=== PATIENT | female | born 1965 | race Caucasian/White ===

== ENCOUNTER → 2016-11-23 | Outpatient (CLI) | payer MEDICARE, MEDICAID ==
--- NOTE | 2016-11-23 14:28 | WOMENS IMAGING REPORT ---
EXAM DESCRIPTION: BILAT SCREENING MAMMO W/CAD COMPLETED DATE/TIME: 11/23/2016 10:33 am REASON FOR STUDY: Z12.31, ROUTINE SCREENING MAMMO Z12.31 ENCNTR SCREEN MAMMOGRAM FOR MALIGNANT NEOP LASM OF LINDA COMPARISON: 2009 to 2015 TECHNIQUE: Standard craniocaudal and mediolateral oblique views of each breast recorded using MediTAPa l acquisition. LIMITATIONS: None. FINDINGS: No masses, calcifications or architectural distortion. No areas of suspicion. Read with the assistance of CAD. .[facility] - R2 Cenova Version 1.3 .[facility] - R2 Cenova Version 1.3 .[facility] - R2 Cenova Version 2.4 .[facility] [place] - R2 Cenova Version 2.4 .[facility] - R2 Salesperson [employer]ial Needs Version 9.2 IMPRESSION: NORMAL MAMMOGRAM. BIRADS 1. BREAST DENSITY: b. There are scattered areas of fibroglandular density. BIRAD: 1 NEGATIVE RECOMMENDATION: ROUTINE SCREENING COMMENT: The patient has been notified of the results by letter per SA requirements. Additional no tification policies are in place for contacting patient with suspicious or incomplete findings. Quality ID #[id number]: The [employer] recommends an annual screening mammogram for women aged 40 years or over. This facility utilizes a reminder system to ensure that all patients receive reminder letters, and/or direct phone calls for appointments. This includes reminders for routine scr eening mammograms, diagnostic mammograms, or other Breast Imaging Interventions when appropriate. Th is patient will be placed in the appropriate reminder system. The [employer] (ACR) has developed recommendations for screening MRI of the breast s in certain patient populations, to be used in conjunction with mammography. Breast MRI surveillanc e may be appropriate for women with more than 20% lifetime risk of developing breast cancer as deter mined by genetic testing, significant family history of the disease, or history of mantle radiation f or Hodgkins Disease. ACR Practice Guidelines 2008. TECHNICAL DOCUMENTATION: FINDING NUMBER: (1) ASSESSMENT: (1) JOB ID: [id number] [employer]- All Rights Reserved
== END ==
LOC: WI 15:43
PROVIDERS: ATTEND Physician Assistant
DX: Z12.31 Encounter for screening mammogram for malignant neoplasm of breast (principal)
CPT/HCPCS: 77067; G0202

== ENCOUNTER → 2017-02-14 | Outpatient (CLI) | payer MEDICARE, MEDICAID ==
--- NOTE | 2017-02-14 12:40 | RADIOLOGY REPORT (SQ) ---
EXAM DESCRIPTION: SACRUM AND COCCYX COMPLETED DATE/TIME: 02/14/2017 10:17 am REASON FOR STUDY: MYALGIA M79.1 MYALGIA COMPARISON: None. NUMBER OF VIEWS: Three views. TECHNIQUE: AP, lateral, and tilt views of the sacrum and coccyx. LIMITATIONS: None. FINDINGS: MINERALIZATION: Osteopenic BONES: On the lateral view, there is a questionable transverse fracture at the S5 level, marked with an arrow on lateral view. Remainder of the bony sacrum and coccyx is intact. Visualized pelvis in t he field of view unremarkable SOFT TISSUES: No soft tissue swelling. No foreign body. OTHER: Advanced degenerative disc changes at L4-5 and L5-S1. IMPRESSION: Question nondisplaced transverse fracture distal sacrum near the sacrococcygeal junction . Advanced degenerative disc changes at L4-5 and L5-S1 TECHNICAL DOCUMENTATION: JOB ID: [id number] [employer]- All Rights Reserved
== END ==
LOC: OD 09:42
PROVIDERS: ATTEND Physician Assistant
DX: M79.1 Myalgia (principal)
CPT/HCPCS: 72220

== ENCOUNTER 2017-02-26 09:27 | Day surgery (SDC) | payer MEDICARE, MEDICAID ==
[~2017-02-26 09:27] MED LIST: PROPOFOL INJ 200 MG/20 ML VIAL IV ONE
[2017-02-26 11:02] VITALS: BP 107/73
--- NOTE | 2017-02-26 13:13 | Operative Report ---
Operative Report DATE OF SURGERY: 02/26/17 Operative Report: The risks, benefits and alternatives of the procedure including risks of bleeding, perforation requiring surgery are explained to the patient detail and informed consent was obtained. The patient was brought back to the endoscopy suite and placed in the left, lateral decubital position. Timeout was called. Propofol medications administered. A rectal examination was done which did not reveal any masses, tears or fissures. An Olympus videoscope was inserted in the patient's rectum. It is carefully advanced all the way to the cecum. The cecum was identified by the usual anatomical landmarks including the ileocecal valve as well as the appendiceal office. Photodocumentation is obtained. Prep is good. The scope was then sequentially pulled back via the various segments of the colon including the ascending colon, hepatic flexure, transverse colon, splenic flexure, descending colon finally to the rectosigmoid portions of the colon. Retroflexion maneuver was performed. PREOPERATIVE DIAGNOSIS: Abdominal distention, change of bowel habits. POSTOPERATIVE DIAGNOSIS: Redundant colon. Random biopsies obtained on the right side of the colon to rule out for collagenous, microscopic colitis. Internal hemorrhoids. No evidence of Crohn's disease, ulcerative colitis or obstructive lesions noted. Prep is good. OPERATION: Colonoscopy with biopsy SURGEON: VY HUERTAS ANESTHESIA: LMAC TISSUE REMOVED OR ALTERED: As noted above. COMPLICATIONS: None. ESTIMATED BLOOD LOSS: None. INTRAOPERATIVE FINDINGS: As described above. PROCEDURE: Patient tolerated the procedure well. No immediate postprocedure complications are noted. Patient discharged in good condition. Discharge date 02/26/2017. Discharge diet: Regular. Discharge activity: Regular. 2-3 week follow-up to discuss findings. Patient is instructed to call the office or proceed to the emergency room should there be any further problems or questions. We will wait on pathology. 10 year surveillance colonoscopy.
== END 2017-02-26 11:07 | disposition home or self-care (01) ==
LOC: END 09:27
PROVIDERS: ATTEND Internal Medicine Gastroenterology
PROC: 0DBF8ZX Excision of Right Large Intestine, Via Natural or Artificial Opening Endoscopic, Diagnostic (ICD-10-PCS; principal; 2017-02-26 11:00)
DX: K64.8 Other hemorrhoids (principal); K62.89 Other specified diseases of anus and rectum; K31.89 Other diseases of stomach and duodenum; I10 Essential (primary) hypertension; F70 Mild intellectual disabilities; Z87.891 Personal history of nicotine dependence; Z79.899 Other long term (current) drug therapy
CPT/HCPCS: 45380; 88305 ×2; J2704; 810

== ENCOUNTER 2017-04-05 22:49 | Emergency (ER) | payer MEDICARE, MEDICAID ==
[2017-04-05] MEDS ORDERED: NORMAL SALINE 1000 ML 1,000 ML IV PRN (23:43)
--- NOTE | 2017-04-05 23:47 | ER Document Report ---
ED GI Bleed / Rectal Pain - General Chief Complaint: Rectal Bleeding Stated Complaint: RECTAL BLEEDING Time Seen by Provider: 04/05/17 23:43 Mode of Arrival: Ambulatory Information source: Patient TRAVEL OUTSIDE OF THE [place] IN LAST 30 DAYS: No - HPI Patient complains to provider of: Bright red bld from rect. Onset: Yesterday Timing/Duration: Persistent Quality of pain: Achy Severity of symptoms: Mild Pain Level: 1 Notes: Patient is a 52-year-old female with cognitive delay who lives at a local halfway, brought to the emergency room by halfway staff for complaints of rectal bleeding that started yesterday after having a large bowel movement, when they were helping patient changes evening they noted a moderate amount of blood in her briefs as well, she is complaining of some crampy lower abdominal pain, no vomiting, no fevers, no history of similar symptoms previously - Related Data Allergies/Adverse Reactions: aspirin [Aspirin] Allergy (Verified 02/26/17 09:36) codeine [Codeine] Allergy (Verified 02/26/17 09:36) risperidone [Risperidone] Allergy (Verified 02/26/17 09:36) Sulfa (Sulfonamide Antibiotics) Allergy (Verified 02/26/17 09:36) Past Medical History - General Information source: Patient - Social History Smoking Status: Unknown if Ever Smoked Family History: Reviewed & Not Pertinent Patient has suicidal ideation: No Patient has homicidal ideation: No - Past Medical History Cardiac Medical History: Reports: Hx Hypertension Denies: Hx Coronary Artery Disease, Hx Heart Attack Pulmonary Medical History: Denies: Hx Asthma, Hx Bronchitis, Hx COPD, Hx Pneumonia Neurological Medical History: Reports: Hx Cerebrovascular Accident - QUESTIONABLE. Denies: Hx Seizures Renal/ Medical History: Denies: Hx Peritoneal Dialysis Musculoskeltal Medical History: Reports Hx Arthritis - GENERALIZED Past Surgical History: Reports: Hx Tubal Ligation - Immunizations Hx Diphtheria, Pertussis, Tetanus Vaccination: No Review of Systems - Review of Systems Constitutional: No symptoms reported EENT: No symptoms reported Cardiovascular: No symptoms reported Respiratory: No symptoms reported Gastrointestinal: See HPI Genitourinary: No symptoms reported Female Genitourinary: No symptoms reported Musculoskeletal: No symptoms reported Skin: No symptoms reported Hematologic/Lymphatic: No symptoms reported Neurological/Psychological: No symptoms reported -: Yes All other systems reviewed and negative Physical Exam - Vital signs Vitals: Temp Pulse Resp BP Pulse Ox 97.9 F 102 H 16 95/55 L 93 04/05/17 23:27 04/05/17 23:27 04/05/17 23:27 04/05/17 23:27 04/05/17 23:27 Interpretation: Hypotensive, Tachycardic - HEENT Head: Normocephalic, Atraumatic Eyes: Normal Pupils: PERRL Mucous membranes: Dry - Respiratory Respiratory status: No respiratory distress Chest status: Nontender Breath sounds: Normal Chest palpation: Normal - Cardiovascular Rhythm: Regular Heart sounds: Normal auscultation Murmur: No - Abdominal Inspection: Normal Distension: No distension Bowel sounds: Normal Tenderness: Tender - Mild diffuse Organomegaly: No organomegaly - Back Back: Normal, Nontender - Extremities General upper extremity: Normal inspection, Nontender, Normal color, Normal ROM , Normal temperature General lower extremity: Normal inspection, Nontender, Normal color, Normal ROM , Normal temperature, Normal weight bearing. No: Nathan's sign - Neurological Neuro grossly intact: Yes Cognition: Normal Orientation: AAOx4 [place] Coma Scale Eye Opening: Spontaneous Annelise Coma Scale Verbal: Oriented Annelise Coma Scale Motor: Obeys Commands [place] Coma Scale Total: 15 - Psychological Associated symptoms: Normal affect, Normal mood - Skin Skin Temperature: Warm Skin Moisture: Dry Skin Color: Pale Course - Vital Signs Vital signs: Temp Pulse Resp BP Pulse Ox 97.9 F 102 H 16 95/55 L 93 04/05/17 23:27 04/05/17 23:27 04/05/17 23:27 04/05/17 23:27 04/05/17 23:27
--- NOTE | 2017-04-06 00:32 | ER Document Report ---
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 Patient had a very large difficult bowel movement with straining yesterday afternoon and had blood mixed in, patient had a brief change and the agent noted this evening that patient had "a lot of blood soaked into the bottom of the brief". Patient complaining of intermittent crampy lower abdominal pain. No vomiting, no dizziness, no passing out. Patient does not have a history of the same. Patient is not on a blood thinner. PMH of HTN, HLD, GERD, tubal ligation. TRAVEL OUTSIDE OF THE [place] IN LAST 30 DAYS: No - Related Data Allergies/Adverse Reactions: aspirin [Aspirin] Allergy (Verified 02/26/17 09:36) codeine [Codeine] Allergy (Verified 02/26/17 09:36) risperidone [Risperidone] Allergy (Verified 02/26/17 09:36) Sulfa (Sulfonamide Antibiotics) Allergy (Verified 02/26/17 09:36) Past Medical History - General Information source: Patient - Social History Smoking Status: Never Smoker Frequency of alcohol use: None Drug Abuse: None Lives with: [facility] Family History: Reviewed & Not Pertinent Patient has suicidal ideation: No Patient has homicidal ideation: No - Past Medical History Cardiac Medical History: Reports: Hx Hypertension Denies: Hx Coronary Artery Disease, Hx Heart Attack Pulmonary Medical History: Denies: Hx Asthma, Hx Bronchitis, Hx COPD, Hx Pneumonia Neurological Medical History: Reports: Hx Cerebrovascular Accident - QUESTIONABLE. Denies: Hx Seizures Renal/ Medical History: Denies: Hx Peritoneal Dialysis Musculoskeltal Medical History: Reports Hx Arthritis - GENERALIZED Past Surgical History: Reports: Hx Tubal Ligation - Immunizations Hx Diphtheria, Pertussis, Tetanus Vaccination: No Review of Systems - Review of Systems Constitutional: No symptoms reported EENT: No symptoms reported Cardiovascular: See HPI Respiratory: No symptoms reported Gastrointestinal: See HPI Genitourinary: No symptoms reported Female Genitourinary: No symptoms reported Musculoskeletal: No symptoms reported Skin: No symptoms reported Hematologic/Lymphatic: No symptoms reported Neurological/Psychological: No symptoms reported Physical Exam - Vital signs Vitals: Temp Pulse Resp BP Pulse Ox 97.9 F 102 H 16 95/55 L 93 04/05/17 23:27 04/05/17 23:27 04/05/17 23:27 04/05/17 23:27 04/05/17 23:27 Interpretation: Normal - General General appearance: Appears well, Alert In distress: None - HEENT Head: Normocephalic, Atraumatic Eyes: Normal Conjunctiva: Normal Extraocular movements intact: Yes Eyelashes: Normal Pupils: PERRL Mouth/Lips: Normal Mucous membranes: Normal Pharynx: Normal Neck: Normal - Respiratory Respiratory status: No respiratory distress Chest status: Nontender Breath sounds: Normal. No: Decreased air movement, Wheezing Chest palpation: Normal - Cardiovascular Rhythm: Regular, Tachycardia - borderline Heart sounds: Normal auscultation, S1 appreciated, S2 appreciated Murmur: No - Abdominal Inspection: Normal Distension: No distension Bowel sounds: Normal Tenderness: Nontender. No: Tender, McBurney's point, Veras's sign, Guarding Organomegaly: No organomegaly - Rectal Stool: Heme negative, See lab result. No: Black, Bloody Hemorrhoids: None. No: Internal, External, Anal fissure, Mass - Back Back: Normal, Nontender. No: Tender - Extremities General upper extremity: Normal inspection, Nontender, Normal color, Normal ROM , Normal temperature General lower extremity: Normal inspection, Nontender, Normal color, Normal ROM , Normal temperature, Normal weight bearing. No: Nathan's sign - Neurological Neuro grossly intact: Yes Cognition: Normal Orientation: AAOx4 Annelise Coma Scale Eye Opening: Spontaneous Annelise Coma Scale Verbal: Oriented [place] Coma Scale Motor: Obeys Commands [place] Coma Scale Total: 15 Speech: Normal Motor strength normal: LUE, RUE, LLE, RLE Sensory: Normal - Psychological Associated symptoms: Normal affect, Normal mood - Skin Skin Temperature: Warm Skin Moisture: Dry Skin Color: Normal Course - Re-evaluation Re-evalutation: Patient with borderline tachycardia and hypotension on initial evaluation, she has parched lips and tongue and extremely dry mucous membranes but otherwise she does not appear to be in any discomfort and her physical examination is otherwise unremarkable. Rectal examination shows no hemorrhoids, shows no current bleeding, Hemoccult is negative. Abdomen is soft. CBC is unremarkable, chemistry unremarkable, urinalysis eventually obtained after 2 L IV fluid bolus, after 2 L IV fluid bolus hypotension resolved, tachycardia resolved, patient appears improved and states she feels much better. Discussed with patient and provider at bedside. Patient will be placed on stool softener, advised not to strain, is to routinely follow-up with her primary care, discussed return precautions in detail, patient and provider state understanding and agreement. - Vital Signs Vital signs: Temp Pulse Resp BP Pulse Ox 97.9 F 102 H 10 L 103/69 96 04/05/17 23:27 04/05/17 23:27 04/06/17 04:00 04/06/17 04:01 04/06/17 04:01 - Laboratory Result Diagrams: 04/06/17 00:16 04/06/17 00:16 Laboratory results interpreted by me: 04/06/17 04/06/17 00:16 03:20 AST 42 H Urine Blood SMALL H Discharge - Discharge Clinical Impression: Rectal bleeding, Dehydration Condition: Stable Disposition: HOME, SELF-CARE Additional Instructions: She has been rehydrated. Physical examination does not show any concerning abnormalities in regards to her recent rectal bleeding. Take the stool softener daily for the next 3-4 days, continue plenty of fluids, follow-up with her primary care provider. Please return the emergency department for any concerning or worsening symptoms including vomiting, abdominal pain, returned or significant bleeding, passing out, or any other concerning symptoms. Prescriptions: Docusate Sodium [Colace 100 mg Capsule] 100 mg PO DAILY #30 capsule Referrals: SKYLA VALDIVIA PA-C [Primary Care Provider] - Follow up as needed
[2017-04-06 00:37] LABS: ABSOLUTE BASOPHILS # (AUTO) 0.1 10^3/uL (0.0-0.2); ABSOLUTE EOSINOPHILS # (AUTO) 0.1 10^3/uL (0.0-0.6); ABSOLUTE LYMPHOCYTES (AUTO) 1.6 10^3/uL (0.5-4.7); ABSOLUTE MONOCYTES (AUTO) 0.5 10^3/uL (0.1-1.4); ABSOLUTE NEUT (AUTO) 6.3 10^3/uL (1.7-8.2); BASOPHILS % (AUTO) 0.6 % (0-2); EOSINOPHILS % (AUTO) 0.9 % (0-6); HEMATOCRIT 37.4 % (36.0-47.0); HEMOGLOBIN 12.9 g/dL (12.0-15.5); HGB HCT DIFFERENCE 1.3; LYMPHOCYTES % (AUTO) 18.8 % (13-45); MEAN CORPUSCULAR HEMOGLOBIN 29.3 pg (27.0-33.4); MEAN CORPUSCULAR HGB CONC 34.4 g/dL (32.0-36.0); MEAN CORPUSCULAR VOLUME 85 fl (80-97); MONOCYTES % (AUTO) 5.9 % (3-13); PROTHROMBIN TIME 12.8 SEC (11.4-15.4); RED BLOOD COUNT 4.39 10^6/uL (3.72-5.28); RED CELL DISTRIBUTION WIDTH 13.4 % (11.5-14.0); SEGMENTED NEUTROPHILS % (AUTO) 73.8 % (42-78); WHITE BLOOD COUNT 8.6 10^3/uL (4.0-10.5)
[2017-04-06 00:53] LABS: ALANINE AMINOTRANSFERASE 25 U/L (9-52); ALKALINE PHOSPHATASE 72 U/L (38-126); ANION GAP 7 (5-19); ASPARTATE AMINO TRANSFERASE 42 U/L (14-36); BILIRUBIN,DIRECT 0.4 mg/dL (0.0-0.4); BILIRUBIN,TOTAL 0.4 mg/dL (0.2-1.3); BLOOD UREA NITROGEN 13 mg/dL (7-20); CALCIUM 9.2 mg/dL (8.4-10.2); CARBON DIOXIDE 28 mmol/L (22-30); CHLORIDE 103 mmol/L (98-107); CREATININE RESULT 0.96 mg/dL (0.52-1.25); GLUCOSE 101 mg/dL (75-110); POTASSIUM 4.1 mmol/L (3.6-5.0); SODIUM 138.2 mmol/L (137-145); TOTAL PROTEIN 7.2 g/dL (6.3-8.2)
[2017-04-06] MEDS ORDERED: NORMAL SALINE 1000 ML 1,000 ML IV ONE ×2 (01:27→01:44)
[2017-04-06 04:00] LABS: APPEARANCE,URINE CLEAR; BILIRUBIN,URINE NEGATIVE (NEGATIVE); GLUCOSE, URINE NEGATIVE (NEGATIVE); KETONES,URINE NEGATIVE (NEGATIVE); LEUKOCYTE ESTERASE,URINE NEGATIVE (NEGATIVE); NITRITE,URINE NEGATIVE (NEGATIVE); PROTEIN,URINE NEGATIVE (NEGATIVE); URINE SPECIFIC GRAVITY 1.004; UROBILINOGEN,URINE NEGATIVE mg/dL (<2.0)
[2017-04-06 04:38] VITALS: BP 103/69
== END 2017-04-06 04:38 | disposition home or self-care (01) ==
LOC: ER 22:49
DX: K62.5 Hemorrhage of anus and rectum (principal); E86.0 Dehydration; K21.9 Gastro-esophageal reflux disease without esophagitis; Z88.6 Allergy status to analgesic agent; Z88.2 Allergy status to sulfonamides; Z98.51 Tubal ligation status
CPT/HCPCS: 99283; 96360; 96361; 86900; 86901; 36415; 86850; 85025; 85610; 85730; 82272; 80053; 81001; J7030

== ENCOUNTER → 2017-10-22 | Outpatient (CLI) | payer MEDICARE, MEDICAID ==
--- NOTE | 2017-10-22 12:21 | RADIOLOGY REPORT (SQ) ---
EXAM DESCRIPTION: TIBIA FIBULA RIGHT COMPLETED DATE/TIME: 10/22/2017 9:56 am REASON FOR STUDY: DISORDER OF THE SKIN AND SUBCUTANEOUS TISSUE, UNSPECIFIED L98.9 DISORDER OF THE S KIN AND SUBCUTANEOUS TISSUE, UNSPECIF COMPARISON: None. NUMBER OF VIEWS: Two views. TECHNIQUE: Two radiographic images acquired of the right tibia and fibula to include the knee and an kle in at least one projection. LIMITATIONS: None. FINDINGS: MINERALIZATION: Normal. BONES: No acute fracture or dislocation. No worrisome bone lesions. SOFT TISSUES: Vascular calcifications. OTHER: No other significant finding. IMPRESSION: No acute findings. No evidence of osteomyelitis. TECHNICAL DOCUMENTATION: JOB ID: [id number] [employer]- All Rights Reserved Reading location - IP/workstation name: [email or web address]
== END ==
LOC: OD 09:36
PROVIDERS: ATTEND Physician Assistant
DX: L98.9 Disorder of the skin and subcutaneous tissue, unspecified (principal)

== ENCOUNTER → 2017-11-27 | Outpatient (CLI) | payer MEDICARE, MEDICAID ==
--- NOTE | 2017-11-28 15:13 | WOMENS IMAGING REPORT ---
EXAM DESCRIPTION: 3D SCREENING MAMMO BILAT COMPLETED DATE/TIME: 11/27/2017 10:08 am REASON FOR STUDY: SCREENING MAMMO Z12.31 ENCNTR SCREEN MAMMOGRAM FOR MALIGNANT NEOPLASM OF LINDA COMPARISON: [id number] TECHNIQUE: Standard craniocaudal and mediolateral oblique views of each breast recorded using digita l acquisition and breast tomosynthesis. LIMITATIONS: None. FINDINGS: No masses, calcifications or architectural distortion. No areas of suspicion. Read with the assistance of CAD. .[facility] - R2 Cenova Version 1.3 .[facility] - R2 Cenova Version 1.3 .[facility] - R2 Cenova Version 2.4 .[facility] - R2 Cenova Version 2.4 .[facility] - R2 [employer] Handler Version 9.2 IMPRESSION: NORMAL MAMMOGRAM. BIRADS 1. BREAST DENSITY: b. There are scattered areas of fibroglandular density. BIRAD: 1 NEGATIVE RECOMMENDATION: ROUTINE SCREENING COMMENT: The patient has been notified of the results by letter per SA requirements. Additional no tification policies are in place for contacting patient with suspicious or incomplete findings. Quality ID #225: The [employer] recommends an annual screening mammogram for women aged 40 years or over. This facility utilizes a reminder system to ensure that all patients receive reminder letters, and/or direct phone calls for appointments. This includes reminders for routine scr eening mammograms, diagnostic mammograms, or other Breast Imaging Interventions when appropriate. Th is patient will be placed in the appropriate reminder system. The [employer] [employer] (ACR) has developed recommendations for screening MRI of the breast s in certain patient populations, to be used in conjunction with mammography. Breast MRI surveillanc e may be appropriate for women with more than 20% lifetime risk of developing breast cancer as deter mined by genetic testing, significant family history of the disease, or history of mantle radiation f or Hodgkins Disease. ACR Practice Guidelines 2008. DBT Technology DBT is a type of tomographic mammography. With conventional mammography, overlapping breast tissue ma y make lesions difficult to detect, even with good compression. DBT uses an x-ray tube that rotates a round the breast, taking images at different angles. These images are then combined to create thin sl ices of the breast that the radiologist can view as a 3D reconstruction. The [facility] unit can perform full-field digital mammograms (2D imaging); or DBT (3D imaging); or both, in a combination mode that quickly performs both the mammogram and the tomosynthesis scan while the breast is still compressed. PQRS 6045F: Fluoroscopic imaging is not utilized for breast tomosynthesis. TECHNICAL DOCUMENTATION: FINDING NUMBER: (1) ASSESSMENT: (1) JOB ID: [id number] [employer]- All Rights Reserved Reading location - IP/workstation name: [email or web address]
== END ==
LOC: WI 09:21
PROVIDERS: ATTEND Physician Assistant
DX: Z12.31 Encounter for screening mammogram for malignant neoplasm of breast (principal)
CPT/HCPCS: 77063; 77067

== ENCOUNTER → 2018-10-08 | Outpatient (CLI) | payer MEDICARE, MEDICAID ==
--- NOTE | 2018-10-08 11:32 | RADIOLOGY REPORT (SQ) ---
EXAM DESCRIPTION: KNEE RIGHT 3 VIEWS COMPLETED DATE/TIME: 10/08/2018 11:10 am REASON FOR STUDY: PAIN IN RIGHT KNEE M25.561 PAIN IN RIGHT KNEE M79.671 PAIN IN RIGHT FOOT COMPARISON: None. NUMBER OF VIEWS: Three views. TECHNIQUE: AP, lateral, and sunrise patella radiographic images acquired of the right knee. LIMITATIONS: None. FINDINGS: MINERALIZATION: Normal. BONES: No acute fracture or dislocation. No worrisome bone lesions. JOINT: No effusion. SOFT TISSUES: There is mild prepatellar soft tissue swelling. OTHER: No other significant finding. IMPRESSION: Prepatellar soft tissue swelling. No acute osseous or joint abnormality. TECHNICAL DOCUMENTATION: JOB ID: [id number] [employer]- All Rights Reserved Reading location - IP/workstation name: [email or web address]
--- NOTE | 2018-10-08 11:33 | RADIOLOGY REPORT (SQ) ---
EXAM DESCRIPTION: ANKLE RIGHT COMPLETE COMPLETED DATE/TIME: 10/08/2018 11:10 am REASON FOR STUDY: PAIN IN RIGHT FOOT M25.561 PAIN IN RIGHT KNEE M79.671 PAIN IN RIGHT FOOT COMPARISON: None. NUMBER OF VIEWS: Three views. TECHNIQUE: AP, lateral, and oblique radiographic images acquired of the right ankle. LIMITATIONS: None. FINDINGS: MINERALIZATION: Normal. BONES: No acute fracture or dislocation. No worrisome bone lesions. JOINTS: No effusions. SOFT TISSUES: Mild soft tissue swelling. Phleboliths are seen in the lower leg. OTHER: No other significant finding. IMPRESSION: No acute osseous abnormality. Mild soft tissue swelling. Chronic venous disease. TECHNICAL DOCUMENTATION: JOB ID: [id number] [employer]- All Rights Reserved Reading location - IP/workstation name: [email or web address]
== END ==
LOC: OD 10:40
PROVIDERS: ATTEND Physician Assistant
DX: M25.561 Pain in right knee (principal); M79.671 Pain in right foot; I87.2 Venous insufficiency (chronic) (peripheral)

== ENCOUNTER → 2018-12-09 | Outpatient (CLI) | payer MEDICARE, MEDICAID ==
[2018-12-09 09:42] LABS: ABSOLUTE EOSINOPHILS # (AUTO) 0.1 10^3/uL (0.0-0.6); ABSOLUTE MONOCYTES (AUTO) 0.3 10^3/uL (0.1-1.4); ABSOLUTE NEUT (AUTO) 3.8 10^3/uL (1.7-8.2); BASOPHILS % (AUTO) 0.4 % (0-2); EOSINOPHILS % (AUTO) 2.4 % (0-6); HEMATOCRIT 37.3 % (36.0-47.0); HEMOGLOBIN 12.7 g/dL (12.0-15.5); LYMPHOCYTES % (AUTO) 19.5 % (13-45); MEAN CORPUSCULAR HEMOGLOBIN 28.7 pg (27.0-33.4); MEAN CORPUSCULAR HGB CONC 34.1 g/dL (32.0-36.0); MEAN CORPUSCULAR VOLUME 84 fl (80-97); MONOCYTES % (AUTO) 6.4 % (3-13); PLATELET COUNT 265 10^3/uL (150-450); RED BLOOD COUNT 4.43 10^6/uL (3.72-5.28); RED CELL DISTRIBUTION WIDTH 13.7 % (11.5-14.0); SEGMENTED NEUTROPHILS % (AUTO) 71.3 % (42-78); TOTAL CELLS COUNTED % (AUTO) 100 %; WHITE BLOOD COUNT 5.4 10^3/uL (4.0-10.5)
[2018-12-09 10:06] LABS: ALANINE AMINOTRANSFERASE 25 U/L (9-52); ALBUMIN 4.2 g/dL (3.5-5.0); ALKALINE PHOSPHATASE 59 U/L (38-126); ANION GAP 9 (5-19); ASPARTATE AMINO TRANSFERASE 22 U/L (14-36); BILIRUBIN,DIRECT 0.3 mg/dL (0.0-0.4); BILIRUBIN,TOTAL 0.4 mg/dL (0.2-1.3); BLOOD UREA NITROGEN 16 mg/dL (7-20); CALCIUM 9.5 mg/dL (8.4-10.2); CARBON DIOXIDE 28 mmol/L (22-30); CHLORIDE 104 mmol/L (98-107); GLUCOSE 97 mg/dL (75-110); POTASSIUM 4.2 mmol/L (3.6-5.0); SODIUM 141.2 mmol/L (137-145); TOTAL PROTEIN 7.3 g/dL (6.3-8.2); TRIGLYCERIDES 61 mg/dL (<150)
[2018-12-09 10:17] LABS: DIRECT LDL 70 mg/dL (<100)
== END ==
LOC: OD 09:15
PROVIDERS: ATTEND Physician Assistant
DX: E78.5 Hyperlipidemia, unspecified (principal); I10 Essential (primary) hypertension; L30.9 Dermatitis, unspecified
CPT/HCPCS: 36415; 80053; 80061; 85025

== ENCOUNTER → 2019-01-01 | Outpatient (CLI) | payer MEDICARE, MEDICAID ==
--- NOTE | 2019-01-01 15:16 | WOMENS IMAGING REPORT ---
EXAM DESCRIPTION: 3D SCREENING MAMMO BILAT COMPLETED DATE/TIME: 01/01/2019 9:36 am REASON FOR STUDY: Z12.31 ENCOUNTER FOR SCREENING MAMMOGRAM FOR MALIGNANT NEOPLASM OF BREAST Z12.31 ENCNTR SCREEN MAMMOGRAM FOR MALIGNANT NEOPLASM OF LINDA COMPARISON: Multiple since 2008 EXAM PARAMETERS: Views: Standard craniocaudal and mediolateral oblique views of each breast recorded using digital acquisition and breast tomosynthesis. Read with the assistance of CAD. .[facility] - R2 Elementary Science Teacher Version 9.2 LIMITATIONS: None. FINDINGS: No suspicious masses, suspicious calcifications or architectural distortion. No areas of c oncern. IMPRESSION: NEGATIVE MAMMOGRAM. BIRADS 1. BREAST DENSITY: b. There are scattered areas of fibroglandular density. BIRAD: ASSESSMENT: 1 NEGATIVE RECOMMENDATION: ROUTINE SCREENING COMMENT: The patient has been notified of the results by letter per MQSA requirements. Additional no tification policies are in place for contacting patient with suspicious or incomplete findings. Quality ID #225: The [employer] [employer] recommends an annual screening mammogram for women aged 40 years or over. This facility utilizes a reminder system to ensure that all patients receive reminder letters, and/or direct phone calls for appointments. This includes reminders for routine scr eening mammograms, diagnostic mammograms, or other Breast Imaging Interventions when appropriate. Th is patient will be placed in the appropriate reminder system. TECHNICAL DOCUMENTATION: FINDING NUMBER: (1) ASSESSMENT: (1) JOB ID: [id number] [employer]- All Rights Reserved Reading location - IP/workstation name: [email or web address]
== END ==
LOC: WI 09:19
PROVIDERS: ATTEND Physician Assistant
DX: Z12.31 Encounter for screening mammogram for malignant neoplasm of breast (principal)
CPT/HCPCS: 77063; 77067

== ENCOUNTER → 2019-11-20 | Outpatient (CLI) | payer MEDICARE, MEDICAID | LOC: OD 08:49 | PROVIDERS: ATTEND Physician Assistant | DX: R63.1 Polydipsia (principal) | CPT/HCPCS: 36415; 82947 ==

== ENCOUNTER → 2020-01-07 | Outpatient (CLI) | payer MEDICARE, MEDICAID ==
--- NOTE | 2020-01-07 10:41 | WOMENS IMAGING REPORT ---
EXAM DESCRIPTION: 3D SCREENING MAMMO BILAT IMAGES COMPLETED DATE/TIME: 01/07/2020 9:44 am REASON FOR STUDY: Z12.31 ENCOUNTER FOR SCREENING MAMMOGRAM FOR MALIGNANT NEOPLASM OF BREAST Z12.31 ENCNTR SCREEN MAMMOGRAM FOR MALIGNANT NEOPLASM OF LINDA COMPARISON: 01/01/2019, 11/27/2017, 11/23/2016 EXAM PARAMETERS: Views: Standard craniocaudal and mediolateral oblique views of each breast recorded using digital acquisition and breast tomosynthesis. Read with the assistance of CAD. .[facility] [place] [employer] Version 9.2 LIMITATIONS: None. FINDINGS: No suspicious masses, suspicious calcifications or architectural distortion. No areas of c oncern. IMPRESSION: NEGATIVE MAMMOGRAM. BIRADS 1. BREAST DENSITY: b. There are scattered areas of fibroglandular density. BIRAD: ASSESSMENT: 1 NEGATIVE RECOMMENDATION: ROUTINE SCREENING COMMENT: The patient has been notified of the results by letter per MQSA requirements. Additional no tification policies are in place for contacting patient with suspicious or incomplete findings. Quality ID #225: The [employer] recommends an annual screening mammogram for women aged 40 years or over. This facility utilizes a reminder system to ensure that all patients receive reminder letters, and/or direct phone calls for appointments. This includes reminders for routine scr eening mammograms, diagnostic mammograms, or other Breast Imaging Interventions when appropriate. Th is patient will be placed in the appropriate reminder system. TECHNICAL DOCUMENTATION: FINDING NUMBER: (1) ASSESSMENT: (1) JOB ID: [id number] 2010 [employer]- All Rights Reserved Reading location - IP/workstation name: [email or web address]
== END ==
LOC: WI 09:36
PROVIDERS: ATTEND Nurse Practitioner Family
DX: Z12.31 Encounter for screening mammogram for malignant neoplasm of breast (principal)
CPT/HCPCS: 77063; 77067

== ENCOUNTER → 2020-03-31 | Outpatient (CLI) | payer MEDICARE, MEDICAID ==
--- NOTE | 2020-03-31 15:22 | RADIOLOGY REPORT (SQ) ---
EXAM DESCRIPTION: CHEST PA/LATERAL IMAGES COMPLETED DATE/TIME: 03/31/2020 2:29 pm REASON FOR STUDY: COUGH COMPARISON: 03/27/2011 EXAM PARAMETERS: NUMBER OF VIEWS: two views TECHNIQUE: Digital Frontal and Lateral radiographic views of the chest acquired. RADIATION DOSE: NA LIMITATIONS: none FINDINGS: LUNGS AND PLEURA: No opacities, masses or pneumothorax. No pleural effusion. MEDIASTINUM AND HILAR STRUCTURES: No masses or contour abnormalities. HEART AND VASCULAR STRUCTURES: Heart normal size. No evidence for failure. BONES: No acute findings. HARDWARE: None in the chest. OTHER: No other significant finding. IMPRESSION: NO SIGNIFICANT RADIOGRAPHIC FINDING IN THE CHEST. TECHNICAL DOCUMENTATION: JOB ID: [id number] 2010 [employer]- All Rights Reserved Reading location - IP/workstation name: [email or web address]
== END ==
LOC: OD 14:10
PROVIDERS: ATTEND Physician Assistant
DX: R05 Cough (principal)
CPT/HCPCS: 71046

== ENCOUNTER → 2020-05-12 | Outpatient (CLI) | payer MEDICARE, MEDICAID ==
--- NOTE | 2020-05-12 12:56 | WOMENS IMAGING REPORT ---
EXAM DESCRIPTION: U/S THYROID/ST TIS HEAD NECK IMAGES COMPLETED DATE/TIME: 05/12/2020 9:34 am REASON FOR STUDY: E07.89 THYROID FULLNESS E07.89 OTHER SPECIFIED DISORDERS OF THYROID COMPARISON: None. TECHNIQUE: Dynamic and static mcgee-scale images acquired of the thyroid gland. Selected additional c olor/power Doppler images recorded. All images stored to PACS. LIMITATIONS: None. FINDINGS: RIGHT LOBE: Normal size. Homogeneous echotexture. No cystic or solid masses. LEFT LOBE: Normal size. Homogeneous echotexture. No cystic or solid masses. ISTHMUS: Normal size. Homogeneous echotexture. No cystic or solid masses. OTHER: No other significant finding. IMPRESSION: NORMAL THYROID ULTRASOUND. TECHNICAL DOCUMENTATION: JOB ID: [id number] 2010 [employer]- All Rights Reserved Reading location - IP/workstation name: [email or web address]
--- OUTSIDE RECORDS SUMMARY | 2020-05-13 18:25 | XMS REPORT ---
:1965 [facility] [place] [address] [place] [address] Care Team Providers Name Role Phone [facility] Primary Care Physician Unavailable Fernanda BROCK Attending Clinician Unavailable Wilian WORTHY Attending Clinician Unavailable Renny Gonzales Attending Clinician Unavailable Allergies, Adverse Reactions, Alerts Allergy Allergy Status Severity Reaction(s) Onset Inactive Treating C rolyments Name Type Date Date Clinician IBUPROFEN Drug Active 2014-08 00:00:0 0 Medications This patient has no known medications. Problems This patient has no known problems. Procedures Procedure Date / Time Performed Performing Clinician Devic e OFFICE/OUTPATIENT VISIT, EST 2015-05-19 11:45:00 OFFICE/OUTPATIENT VISIT, EST 2015-03-31 10:00:00 OFFICE/OUTPATIENT VISIT, EST 2015-01-19 13:45:00 URINALYSIS, AUTO, W/O SCOPE 2015-01-19 13:45:00 COMPREHEN METABOLIC PANEL 2014-12-22 09:45:00 COMPLETE CBC, AUTOMATED 2014-12-22 09:45:00 LIPID PANEL 2014-12-22 09:45:00 ROUTINE VENIPUNCTURE 2014-12-22 09:45:00 OFFICE/OUTPATIENT VISIT, EST 2014-12-18 10:00:00 OFFICE/OUTPATIENT VISIT, EST 2014-11-27 10:30:00 OFFICE/OUTPATIENT VISIT, EST 2014-09-22 09:26:00 ROUTINE VENIPUNCTURE 2014-09-17 09:00:00 LIPID PANEL 2014-09-17 09:00:00 COMPLETE CBC, AUTOMATED 2014-09-17 09:00:00 GLYCOSYLATED HEMOGLOBIN TEST 2014-09-17 09:00:00 COMPREHEN METABOLIC PANEL 2014-09-17 09:00:00 OFFICE/OUTPATIENT VISIT, EST 2014-09-11 11:00:00 OFFICE/OUTPATIENT VISIT, EST 2014-08-28 10:00:00 OFFICE/OUTPATIENT VISIT, EST 2014-06-11 09:45:00 URINALYSIS, AUTO, W/O SCOPE 2014-06-04 10:30:00 OFFICE/OUTPATIENT VISIT, EST 2014-05-01 12:00:00 COMPLETE CBC, AUTOMATED 2014-04-23 09:15:00 ASSAY THYROID STIM HORMONE 2014-04-23 09:15:00 COMPREHEN METABOLIC PANEL 2014-04-23 09:15:00 ROUTINE VENIPUNCTURE 2014-04-23 09:15:00 LIPID PANEL 2014-04-23 09:15:00 CHEST X-RAY 2014-04-17 09:45:00 FLU VACCINE AGE 3 \T\ OVER, IM 2014-04-17 09:45:00 OFFICE/OUTPATIENT VISIT, EST 2014-04-17 09:45:00 IMMUNIZATION ADMIN 2014-04-17 09:45:00 OFFICE/OUTPATIENT VISIT, EST 2013-12-18 12:15:00 OFFICE/OUTPATIENT VISIT, EST 2013-12-08 10:30:00 OFFICE/OUTPATIENT VISIT, EST 2013-11-25 11:30:00 OFFICE/OUTPATIENT VISIT, EST 2013-11-11 10:30:00 Results Test Description Test Time Test Comments Text Results Atomic Results Result Comments URINALYSIS([id number]) 2015-01-19 09:23:00 Test Item Value Reference Range Comments UGLU (test code = UGLU) Negative Negative SPGR (test code = SPGR) 1.015 1.010-1.030 COLOR (test code = COLOR) Yellow Yellow PH (test code = PH) 7.0 ERIK (test code = ERIK) Negative Negative NIT (test code = NIT) Negative Negative UBIL (test code = UBIL) Negative MG/DL Negative TPU (test code = TPU) Negative Negative CLAR (test code = CLAR) Clear Clear UKET (test code = UKET) Negative Negative UBLD (test code = UBLD) Negative Negative UUROBIL (test code = UUROBIL) 0.2 E.U./dL 0.2, 1.0 CHEM [id number] 09:39:00 Test Item Value Reference Range Comments ALB (test code = ALB) 3.6 G/DL 3.2-4.7 EGFRAA (test code = EGFRAA) 76.27 >60.00 GLU (test code = GLU) 91 MG/DL 70-110 ION GAP (test code = ION GAP) 11 4-16 CR (test code = CR) 1.0 MG/DL 0.4-1.3 TP (test code = TP) 7.7 G/DL 6.9-8.5 ALT (test code = ALT) 23 U/L 9-61 NA (test code = NA) 141 MMOL/L 136-145 CA (test code = CA) 9.0 MG/DL 8.5-10.1 BILT (test code = BILT) 0.3 MG/DL 0.1-1.0 GLOB (test code = GLOB) 4.1 1.9-4.5 AST (test code = AST) 17 U/L 9-37 BUN (test code = BUN) 8 MG/DL 7-18 EGFR (test code = EGFR) 62.93 >60.00 K (test code = K) 4.4 MMOL/L 3.5-5.1 CO2 (test code = CO2) 29.8 MMOL/L 21.0-32.0 CL (test code = CL) 105 MMOL/L 98-110 BUN/CREAT RATIO (test code = BUN/CREAT RATIO) 8 10 -14 ALK PHOS (test code = ALK PHOS) 86 U/L 50-136 LIPID [id number] 09:39:00 Test Item Value Reference Range Comments DLDL (test code = DLDL) 139 MG/DL 100-130 TGL (test code = TGL) 219 MG/DL 30-200 CHD (test code = CHD) 17.83 HDL (test code = HDL) 41 MG/DL 32-96 CHOL (test code = CHOL) 230 MG/DL 140-200 [id number] 09:39:00 Test Item Value Reference Range Comments RBC (test code = RBC) 4.81 CU/MM 3.69-4.88 MCHC (test code = MCHC) 32.3 G/DL 33.5-35.5 MCV (test code = MCV) 88 FL 79-95 PLT (test code = PLT) 281 K/UL 165-353 RDW (test code = RDW) 13.7 % 12.0-15.1 HCT (test code = HCT) 42.5 H % 33.3-41.4 WBC (test code = WBC) 6.2 K/UL 3.6-11.1 HGB (test code = HGB) 13.7 G/DL 11.4-14.4 MCH (test code = MCH) 28.5 PQ 26.8-33.2 CHEM [id number] 09:26:00 Test Item Value Reference Range Comments TP (test code = TP) 7.5 G/DL 6.9-8.5 EGFRAA (test code = EGFRAA) 68.40 >60.00 AST (test code = AST) 14 U/L 9-37 BILT (test code = BILT) 0.3 MG/DL 0.1-1.0 BUN (test code = BUN) 12 MG/DL 7-18 EGFR (test code = EGFR) 56.44 >60.00 BUN/CREAT RATIO (test code = BUN/CREAT RATIO) 11 10 -14 ALK PHOS (test code = ALK PHOS) 76 U/L 50-136 CA (test code = CA) 8.8 MG/DL 8.5-10.1 NA (test code = NA) 142 MMOL/L 136-145 ION GAP (test code = ION GAP) 11 4-16 ALB (test code = ALB) 3.6 G/DL 3.2-4.7 GLU (test code = GLU) 77 MG/DL 70-110 CL (test code = CL) 107 MMOL/L 98-110 K (test code = K) 4.2 MMOL/L 3.5-5.1 CR (test code = CR) 1.1 MG/DL 0.4-1.3 ALT (test code = ALT) 17 U/L 9-61 CO2 (test code = CO2) 28.0 MMOL/L 21.0-32.0 GLOB (test code = GLOB) 3.9 1.9-4.5 [id number] 09:26:00 Test Item Value Reference Range Comments HA1C (test code = HA1C) 5.3 % 4.8-6.0 [id number] 09:26:00 Test Item Value Reference Range Comments MCV (test code = MCV) 89 FL 79-95 HCT (test code = HCT) 41.1 % 33.3-41.4 HGB (test code = HGB) 13.6 G/DL 11.4-14.4 RDW (test code = RDW) 14.6 % 12.0-15.1 PLT (test code = PLT) 265 K/UL 165-353 MCH (test code = MCH) 29.4 PQ 26.8-33.2 WBC (test code = WBC) 5.9 K/UL 3.6-11.1 RBC (test code = RBC) 4.63 CU/MM 3.69-4.88 MCHC (test code = MCHC) 33.1 G/DL 33.5-35.5 LIPID [id number] 09:26:00 Test Item Value Reference Range Comments CHOL (test code = CHOL) 206 MG/DL 140-200 HDL (test code = HDL) 46 MG/DL 32-96 DLDL (test code = DLDL) 130 MG/DL 100-130 TGL (test code = TGL) 123 MG/DL 30-200 CHD (test code = CHD) 22.33 URINALYSIS([id number] 10:43:00 Test Item Value Reference Range Comments UBLD (test code = UBLD) Negative Negative UGLU (test code = UGLU) Negative Negative CLAR (test code = CLAR) Clear Clear NIT (test code = NIT) Negative Negative PH (test code = PH) 6.5 COLOR (test code = COLOR) Yellow Yellow UKET (test code = UKET) Negative Negative SPGR (test code = SPGR) 1.010 1.010-1.030 TPU (test code = TPU) Negative Negative ERIK (test code = ERIK) Negative Negative UBIL (test code = UBIL) Negative MG/DL Negative UUROBIL (test code = UUROBIL) 0.2 E.U./dL 0.2, 1.0 [id number] 09:09:00 Test Item Value Reference Range Comments TSH (test code = TSH) 1.15 UIU/ML 0.50-5.80 [id number] 09:09:00 Test Item Value Reference Range Comments MCHC (test code = MCHC) 33.3 G/DL 33.5-35.5 RDW (test code = RDW) 15.0 % 12.0-15.1 PLT (test code = PLT) 280 K/UL 165-353 MCH (test code = MCH) 30.3 PQ 26.8-33.2 MCV (test code = MCV) 91 FL 79-95 HCT (test code = HCT) 38.4 % 33.3-41.4 HGB (test code = HGB) 12.8 L G/DL 11.4-14.4 WBC (test code = WBC) 6.6 K/UL 3.6-11.1 RBC (test code = RBC) 4.22 L CU/MM 3.69-4.88 CHEM [id number] 09:09:00 Test Item Value Reference Range Comments ALB (test code = ALB) 3.7 G/DL 3.2-4.7 BILT (test code = BILT) 0.3 MG/DL 0.1-1.0 GLOB (test code = GLOB) 3.6 1.9-4.5 TP (test code = TP) 7.3 G/DL 6.9-8.5 ION GAP (test code = ION GAP) 12 4-16 GLU (test code = GLU) 74 MG/DL 70-110 CL (test code = CL) 104 MMOL/L 98-110 CO2 (test code = CO2) 29.0 MMOL/L 21.0-32.0 ALK PHOS (test code = ALK PHOS) 68 U/L 50-136 K (test code = K) 4.6 MMOL/L 3.5-5.1 ALT (test code = ALT) 17 U/L 9-61 EGFR (test code = EGFR) 56.54 >60.00 AST (test code = AST) 12 U/L 9-37 CR (test code = CR) 1.1 MG/DL 0.4-1.3 EGFRAA (test code = EGFRAA) 68.52 >60.00 BUN (test code = BUN) 14 MG/DL 7-18 NA (test code = NA) 140 MMOL/L 136-145 BUN/CREAT RATIO (test code = BUN/CREAT RATIO) 13 10 -14 CA (test code = CA) 8.7 MG/DL 8.5-10.1 LIPID [id number] 09:09:00 Test Item Value Reference Range Comments DLDL (test code = DLDL) 125 MG/DL 100-130 CHOL (test code = CHOL) 184 MG/DL 140-200 CHD (test code = CHD) 27.17 HDL (test code = HDL) 50 MG/DL 32-96 TGL (test code = TGL) 82 MG/DL 30-200 Assessments Condition Name Status Diagnosis Date Treating Clinici an Fall same lev from slip/trip w strike agnst Active furniture, init Pain in right shoulder Active Unspecified injury of neck, initial Active encounter Constipation - Unspecified Active Urinary Incontinence (Unspecified) Active Hypertension - Benign (Essential) Active Urinary Incontinence (Unspecified) Active Intertrigo - Erythema Active Hyperlipidemia (Unspecified) Active Hypertension - Benign (Essential) Active Hypertension - Benign (Essential) Active Disease - Degenerative Joint Active Pain - Neck Active Hyperlipidemia (Unspecified) Active Abrasion - Unspecified Site Active Fall from other slipping, trippng, or Active stumbling Other specified hypotension Active Hypertension - Benign (Essential) Active Hypertension - Benign (Essential) Active Abscess/Cellulitis - Scalp/Head Active Gait - Abnormality Active Exam - General Medical Active Abscess/Cellulitis - Scalp/Head Active Abrasion or friction burn of trunk, without Active mention of infection Explosive personality disorder Active Hypertension - Benign (Essential) Active Esophageal Reflux Active Disease - Degenerative Joint Active Hypertension - Benign (Essential) Active Laceration - Lip Active Hypertension - Benign (Essential) Active Cough Active Vaccination - Influenza Active Explosive personality disorder Active Hypertension - Benign (Essential) Active Esophageal Reflux Active Disease - Degenerative Joint Active Pain - Knee/Lower Leg Active Pain - Hip/Pelvic Region And Thigh Active Osteoarthrosis - Generalized (Unspecified Active Site) Hypertension - Benign (Essential) Active Esophageal Reflux Active Arthritis - Knee (Degenerative) Active Bursitis - Hip Active Insomnia (Unspecified) Active Hypertension - Benign (Essential) Active Fatigue/Malaise (Other) Active Osteoarthritis Active Explosive personality disorder Active Gastroesophageal reflux disease Active Allergic rhinitis Active Hypertensive disorder Active Urinary incontinence Active Osteoarthritis Active Explosive personality disorder Active Gastroesophageal reflux disease Active Allergic rhinitis Active Hypertensive disorder Active Urinary incontinence Active Osteoarthritis Active Explosive personality disorder Active Gastroesophageal reflux disease Active Allergic rhinitis Active Hypertensive disorder Active Urinary incontinence Active Osteoarthritis Active Explosive personality disorder Active Gastroesophageal reflux disease Active Allergic rhinitis Active Hypertensive disorder Active Urinary incontinence Active Osteoarthritis Active Explosive personality disorder Active Gastroesophageal reflux disease Active Allergic rhinitis Active Hypertensive disorder Active Urinary incontinence Active Osteoarthritis Active Explosive personality disorder Active Gastroesophageal reflux disease Active Allergic rhinitis Active Hypertensive disorder Active Urinary incontinence Active Osteoarthritis Active Explosive personality disorder Active Gastroesophageal reflux disease Active Allergic rhinitis Active Hypertensive disorder Active Urinary incontinence Active Osteoarthritis Active Explosive personality disorder Active Gastroesophageal reflux disease Active Allergic rhinitis Active Hypertensive disorder Active Urinary incontinence Active Osteoarthritis Active Explosive personality disorder Active Gastroesophageal reflux disease Active Allergic rhinitis Active Hypertensive disorder Active Urinary incontinence Active Osteoarthritis Active Explosive personality disorder Active Gastroesophageal reflux disease Active Allergic rhinitis Active Hypertensive disorder Active Urinary incontinence Active Osteoarthritis Active Explosive personality disorder Active Gastroesophageal reflux disease Active Allergic rhinitis Active Hypertensive disorder Active Urinary incontinence Active Osteoarthritis Active Explosive personality disorder Active Gastroesophageal reflux disease Active Allergic rhinitis Active Hypertensive disorder Active Urinary incontinence Active Osteoarthritis Active Explosive personality disorder Active Gastroesophageal reflux disease Active Allergic rhinitis Active Hypertensive disorder Active Urinary incontinence Active Osteoarthritis Active Explosive personality disorder Active Gastroesophageal reflux disease Active Allergic rhinitis Active Hypertensive disorder Active Urinary incontinence Active Osteoarthritis Active Explosive personality disorder Active Gastroesophageal reflux disease Active Allergic rhinitis Active Hypertensive disorder Active Urinary incontinence Active Osteoarthritis Active Explosive personality disorder Active Gastroesophageal reflux disease Active Allergic rhinitis Active Hypertensive disorder Active Urinary incontinence Active Osteoarthritis Active Explosive personality disorder Active Gastroesophageal reflux disease Active Allergic rhinitis Active Hypertensive disorder Active Urinary incontinence Active Osteoarthritis Active Explosive personality disorder Active Gastroesophageal reflux disease Active Allergic rhinitis Active Hypertensive disorder Active Urinary incontinence Active Osteoarthritis Active Explosive personality disorder Active Gastroesophageal reflux disease Active Allergic rhinitis Active Hypertensive disorder Active Urinary incontinence Active Encounters Start End Encounter Admission Attending Care Care Encounter Date/Time Date/Time Type Type Clinicians Facility Department ID 2015-05-19 2015-05-19 Outpatient Fernanda BROCK RICHIE Gaffney [id number] 11:45:00 11:45:00 [facility] [id number] Health [id number] [place], [id number] Inc. 2015-03-31 2015-03-31 Outpatient Fernanda BROCK RICHIE Gaffney [id number] 10:00:00 10:00:00 [facility] [id number] [facility] [id number] [place], [id number] Inc. 2015-01-19 2015-01-19 Outpatient Fernanda BROCK RICHIE Gaffney [id number] 13:45:00 13:45:00 [facility] [id number] [facility] [id number] [place], [id number] Inc. 2014-12-22 2014-12-22 Outpatient Wilian WORTHY RICHIE Gaffney [id number] 09:45:00 09:45:00 [facility] [id number] Health [id number] [place], [id number] Inc. 2014-12-18 2014-12-18 Outpatient RICHIE Russ [id number] 10:00:00 10:00:00 [facility] [id number] Health [id number] [place], [id number] Inc. 2014-11-27 2014-11-27 Outpatient RICHIE Russ [id number] 10:30:00 10:30:00 [facility] [id number] Health [id number] [place], [id number] Inc. 2014-09-22 2014-09-22 Outpatient RICHIE Russ [id number] 09:26:00 09:26:00 [facility] [id number] Health [id number] [place], 4E68A0 Inc. 2014-09-17 2014-09-17 Outpatient RICHIE Russ [id number] 09:00:00 09:00:00 [facility] [id number] Health [id number] [place], [id number] Inc. 2014-09-11 2014-09-11 Outpatient RICHIE Russ [id number] 11:00:00 11:00:00 [facility] [id number] Health [id number] [place], [id number] Inc. 2014-08-28 2014-08-28 Outpatient RICHIE Russ [id number] 10:00:00 10:00:00 [facility] [id number] Health [id number] [place], F7FB02 Inc. 2014-06-11 2014-06-11 Outpatient Bundle PA RICHIE Gaffney [id number] 09:45:00 09:45:00 C [facility] [id number] Health [id number] [place], [id number] Inc. 2014-06-04 2014-06-04 Outpatient Bundle PA RICHIE Gaffney [id number] 10:30:00 10:30:00 C [facility] [id number] Health [id number] [place], E95E21 Inc. 2014-05-01 2014-05-01 Outpatient Bundle PA RICHIE Gaffney [id number] 12:00:00 12:00:00 C, [facility] [id number] Health [id number] Center, [id number] Inc. 2014-04-23 2014-04-23 Outpatient Bundle PA RICHIE Gaffney [id number] 09:15:00 09:15:00 C, [facility] [id number] Health [id number] Center, [id number] Inc. 2014-04-17 2014-04-17 Outpatient Bundle PA RICHIE Gaffney [id number] 09:45:00 09:45:00 C, [facility] [id number] Health [id number] Center, [id number] Inc. 2013-12-18 2013-12-18 Outpatient Bundle PA RICHIE Gaffney [id number] 12:15:00 12:15:00 C, [facility] [id number] Health [id number] [place], [id number] Inc. 2013-12-08 2013-12-08 Outpatient Bundle PA RICHIE Gaffney [id number] 10:30:00 10:30:00 C, [facility] [id number] Health [id number] Center, [id number] Inc. 2013-11-25 2013-11-25 Outpatient Bundle VEE Gaffney [id number] 11:30:00 11:30:00 C, [facility] [id number] Health [id number] Center, [id number] Inc. 2013-11-11 2013-11-11 Outpatient Bundle VEE Gaffney [id number] 10:30:00 10:30:00 C, [facility] [id number] Health [id number] Center, [id number] Inc. Social History This patient has no known social history. Vital Signs This patient has no known vital signs.
== END ==
LOC: WI 09:52
PROVIDERS: ATTEND Otolaryngology
DX: E07.89 Other specified disorders of thyroid (principal)
CPT/HCPCS: 76536